=== PATIENT | female | born 1955 | race Caucasian/White ===

== ENCOUNTER 2016-05-16 11:27 | Emergency (ER) | payer OTHER ==
[2016-05-16 11:45] VITALS: RESP 16
[2016-05-16] MEDS ORDERED: NS 1,000 ML IV ONE (12:18)
[2016-05-16 12:34] LABS: % IMMATURE GRANULYOCYTES 0.5 % (0.0-1.1); ABSOLUTE IMMATURE GRANULOCYTES 0.02 10^3/uL (0.00-0.10); ADD DIFF? NO; ADD MORPH? NO; ADD SCAN? NO; ATYPICAL LYMPHOCYTE FLAG 10 (0-99); FRAGMENT RBC FLAG 0 (0-99); HEMATOCRIT 43.8 % (38.0-47.0); HEMOGLOBIN 15.5 g/dL (12.6-16.3); LEFT SHIFT FLG 0 (0-99); LIPEMIA HEMOLYSIS FLAG 90 (0-99); MEAN CELL HEMOGLOBIN 31.1 pg (27.9-34.1); MEAN CELL HEMOGLOBIN CONCENTR. 35.4 g/dL (32.4-36.7); MEAN PLATELET VOLUME 9.6 fL (8.7-11.7); PLATELET CLUMPS FLAG 0 (0-99); PLATELET COUNT 274 10^3/uL (150-400); RED BLOOD CELL COUNT 4.98 10^6/uL (4.18-5.33); RED CELL DISTRIBUTION WIDTH 12.3 % (11.5-15.2)
--- NOTE | 2016-05-16 12:38 | EDPHY ---
H & P Stated Complaint: ruq/epigastric /pain under r breast for 10 days Time Seen by Provider: 05/16/16 12:09 HPI/ROS: CHIEF COMPLAINT: Epigastric pain HISTORY OF PRESENT ILLNESS: Patient is a 61-year-old female who comes to the emergency department complaining of right upper quadrant pain for the last 10 days. She states that it had been intermittent until the last 3 days. She has felt nauseous but has not vomited. She has not had a fever. No diarrhea. No chest pain or shortness of breath. It is exacerbated by movement. She thought that maybe she had a bruised rib but does not remember any type of trauma or injury. No cough or infectious symptoms. REVIEW OF SYSTEMS: Constitutional: denies: chills, fever, recent illness, recent injury EENTM: denies: blurred vision, double vision, nose congestion Respiratory: denies: cough, shortness of breath Cardiac: denies: chest pain, irregular heart rate, lightheadedness, palpitations Gastrointestinal/Abdominal: denies: abdominal pain, diarrhea, nausea, vomiting, blood streaked stools Genitourinary: denies: dysuria, frequency, hematuria, pain Musculoskeletal: denies: joint pain, muscle pain Skin: denies: lesions, rash, jaundice, bruising Neurological: denies: headache, numbness, paresthesia, tingling, dizziness, weakness Hematologic/Lymphatic: denies: blood clots, easy bleeding, easy bruising Immunologic/allergic: denies: HIV/AIDS, transplant EXAM: GENERAL: Well-appearing, well-nourished and in no acute distress. HEAD: Atraumatic, normocephalic. EYES: Pupils equal round and reactive to light, extraocular movements intact, sclera anicteric, conjunctiva are normal. ENT: TMs normal, nares patent, oropharynx clear without exudates. Moist mucous membranes. NECK: Normal range of motion, supple without lymphadenopathy or JVD. LUNGS: Breath sounds clear to auscultation bilaterally and equal. No wheezes rales or rhonchi. HEART: Regular rate and rhythm without murmurs, rubs or gallops. ABDOMEN: Soft, nontender, normoactive bowel sounds. No guarding, no rebound. No masses appreciated. BACK: No CVA tenderness, no spinal tenderness, step-offs or deformities EXTREMITIES: Normal range of motion, no pitting or edema. No clubbing or cyanosis. NEUROLOGICAL: Cranial nerves II through XII grossly intact. Normal speech, normal gait. 5/5 strength, normal movement in all extremities, normal sensation PSYCH: Normal mood, normal affect. SKIN: Warm, dry, normal turgor, no visible rashes or lesions. Source: Patient Exam Limitations: No limitations - Personal History Current Tetanus/Diphtheria Vaccine: Yes - Medical/Surgical History Hx Asthma: No Hx Chronic Respiratory Disease: No Hx Diabetes: No Hx Cardiac Disease: No Hx Renal Disease: No Hx Cirrhosis: No Hx Alcoholism: No Hx HIV/AIDS: No Hx Splenectomy or Spleen Trauma: No Other PMH: Denies - Family History Significant Family History: No pertinent family hx - Social History Smoking Status: Never smoked Alcohol Use: Sober Drug Use: None Constitutional: Initial Vital Signs Temperature (C) 36.7 C 05/16/16 11:42 Heart Rate 80 05/16/16 11:42 Respiratory Rate 16 05/16/16 11:42 Blood Pressure 123/67 H 05/16/16 11:42 O2 Sat (%) 92 05/16/16 11:42 O2 Delivery Mode Room Air Allergies/Adverse Reactions: No Known Allergies Allergy (Verified 05/16/16 11:42) Home Medications: Medication Instructions Recorded Ambien 01/29/16 LORAZEPAM 05/16/16 Medical Decision Making - Diagnostics EKG Interpretation: An EKG obtained and was read and documented in trace view. Please see trace view for full reading and report. Sinus rhythm, no acute ischemic changes Imaging: Study: Ultrasound of the: Right upper quadrant Indication: Right upper quadrant pain Results: US scan of the right upper quadrant with special attention to the liver gallbladder and pancreas was obtained. The results of the study are negative for any gallstones, wall thickening or free fluid. The study was read by the radiologist, Dr. Galloway. I viewed the images myself on the PACS system. ED Course/Re-evaluation: Is 1:55 p.m. we discussed the patient's imaging and lab results which are reassuring. EKG is unremarkable. She thinks that she may be pulled her rib. She denies any trauma. I did offer to do a chest x-ray and rib x-ray which she declines. She is happy and would like to go home. will have her follow up in the next couple of days. We discussed indications for returning to the emergency department Differential Diagnosis: Partial list of the Differential diagnosis considered include but were not limited to; biliary disease, rib injury, and although unlikely based on the history and physical exam, I also considered arrhythmia, acute coronary disease , dissection, pneumonia, fracture, liver disease, kidney disease. I discussed these differential diagnoses and the plan with the patient as well as the usual and expected course. The patient understands that the diagnosis is provisional and that in medicine we are not always correct and that further workup is often warranted. Usual and customary warnings were given. All of the patient's questions were answered. The patient was instructed to return to the emergency department should the symptoms at all worsen or return, otherwise to followup with the physician as we discussed. - Data Points Laboratory Results: Laboratory Results 05/16/16 12:10 05/16/16 12:10 05/16/16 05/16/16 05/16/16 12:10 12:10 12:10 WBC 3.70 10^3/uL L 10^3/uL (3.80-9.50) RBC 4.98 10^6/uL 10^6/uL (4.18-5.33) Hgb 15.5 g/dL g/dL (12.6-16.3) Hct 43.8 % % (38.0-47.0) MCV 88.0 fL fL (81.5-99.8) MCH 31.1 pg pg (27.9-34.1) MCHC 35.4 g/dL g/dL (32.4-36.7) RDW 12.3 % % (11.5-15.2) Plt Count 274 10^3/uL 10^3/uL (150-400) MPV 9.6 fL fL (8.7-11.7) Neut % (Auto) 38.4 % L % (39.3-74.2) Lymph % (Auto) 50.8 % H % (15.0-45.0) Bert[place] % (Auto) 5.9 % % (4.5-13.0) Eos % (Auto) 4.1 % % (0.6-7.6) Baso % (Auto) 0.3 % % (0.3-1.7) Nucleat RBC Rel Count 0.0 % % (0.0-0.2) Absolute Neuts (auto) 1.42 10^3/uL L 10^3/uL (1.70-6.50) Absolute Lymphs (auto) 1.88 10^3/uL 10^3/uL (1.00-3.00) Absolute Monos (auto) 0.22 10^3/uL L 10^3/uL (0.30-0.80) Absolute Eos (auto) 0.15 10^3/uL 10^3/uL (0.03-0.40) Absolute Basos (auto) 0.01 10^3/uL L 10^3/uL (0.02-0.10) Absolute Nucleated RBC 0.00 10^3/uL 10^3/uL (0-0.01) Immature Gran % 0.5 % % (0.0-1.1) Immature Gran # 0.02 10^3/uL 10^3/uL (0.00-0.10) D-Dimer < 0.27 ug/mLFEU ug/mLFEU (0.00-0.50) Sodium 138 mEq/L mEq/L (134-144) Potassium 4.9 mEq/L mEq/L (3.5-5.2) Chloride 103 mEq/L mEq/L (97-110) Carbon Dioxide 25 mEq/l mEq/l (22-31) Anion Gap 10 mEq/L mEq/L (8-16) BUN 12 mg/dL mg/dL (7-23) Creatinine 0.8 mg/dL mg/dL (0.6-1.0) Estimated GFR > 60 Glucose 90 mg/dL mg/dL (70-100) Calcium 10.3 mg/dL mg/dL (8.5-10.4) Total Bilirubin 0.9 mg/dL mg/dL (0.1-1.4) Conjugated Bilirubin 0.3 mg/dL mg/dL (0.0-0.5) Unconjugated Bilirubin 0.6 mg/dL mg/dL (0.0-1.1) AST 25 IU/L IU/L (14-46) ALT 30 IU/L IU/L (9-52) Alkaline Phosphatase 46 IU/L IU/L (38-126) Troponin I < 0.012 ng/mL ng/mL (0-0.034) Total Protein 7.9 g/dL g/dL (6.3-8.2) Albumin 4.7 g/dL g/dL (3.5-5.0) Lipase 219.0 IU/L IU/L (23-300) Medications Given: Discontinued Medications Sodium Chloride (Ns) 1,000 mls @ 0 mls/hr IV ONCE ONE PRN Reason: Wide Open Stop: 05/16/16 12:19 Last Admin: 05/16/16 12:40 Dose: 1,000 mls Departure - Departure Disposition: Home, Routine, Self-Care Clinical Impression: Abdominal pain Qualifiers: Abdominal location: epigastric Qualified Code(s): R10.13 - Epigastric pain Condition: Fair Instructions: Epigastric Pain (ED) Referrals: Vannesa Munoz MD [Primary Care Provider] - As per Instructions
[2016-05-16 12:45] LABS: ALANINE AMINOTRANSFERASE 30 IU/L (9-52); ALBUMIN 4.7 g/dL (3.5-5.0); ALKALINE PHOSPHATASE 46 IU/L (38-126); ANION GAP 10 mEq/L (8-16); ASPARTATE AMINOTRANSFERASE 25 IU/L (14-46); BILIRUBIN,TOTAL 0.9 mg/dL (0.1-1.4); BILIRUBIN-CONJUGATED 0.3 mg/dL (0.0-0.5); BILIRUBIN-UNCONJUGATED 0.6 mg/dL (0.0-1.1); CALCIUM 10.3 mg/dL (8.5-10.4); CARBON DIOXIDE 25 mEq/l (22-31); CHLORIDE 103 mEq/L (97-110); CREATININE 0.8 mg/dL (0.6-1.0); GLOMERULAR FILTRATION RATE > 60; GLUCOSE 90 mg/dL (70-100); POTASSIUM 4.9 mEq/L (3.5-5.2); SODIUM 138 mEq/L (134-144); TOTAL PROTEIN 7.9 g/dL (6.3-8.2)
[2016-05-16 12:55] LABS: TROPONIN I < 0.012 ng/mL (0-0.034)
--- NOTE | 2016-05-16 13:23 | CPEKG ---
Heart Rate: 67 RR Interval: 896 P-R Interval: 144 QRSD Interval: 72 QT Interval: 396 QTC Interval: 418 P [place]: 61 QRS [place]: 52 T Wave [place]: 37 EKG Severity - NORMAL ECG - EKG Impression: SINUS RHYTHM Electronically Signed By: Eze Herndon 16-May-2016 13:55:02
[2016-05-16 14:29] VITALS: BP 136/81; PULSE 85; TEMP 97.9; O2SAT 96
== END 2016-05-16 14:29 | disposition home or self-care (01) ==
DX: R10.13 Epigastric pain (principal)

== ENCOUNTER → 2017-01-24 | Outpatient (CLI) | payer OTHER | LOC: FIMAGING 11:35 | PROVIDERS: ATTEND Physician Assistant | DX: Z12.31 Encounter for screening mammogram for malignant neoplasm of breast (principal); N64.4 Mastodynia | CPT/HCPCS: G0204 ==

== ENCOUNTER 2017-09-19 09:50 | Observation (INO) | payer OTHER ==
--- NOTE | 2017-09-19 10:08 | CPEKG ---
Heart Rate: 69 RR Interval: 870 P-R Interval: 152 QRSD Interval: 66 QT Interval: 376 QTC Interval: 403 P [place]: 44 QRS [place]: 37 T Wave [place]: 21 EKG Severity - BORDERLINE ECG - EKG Impression: SINUS RHYTHM EKG Impression: BORDERLINE T WAVE ABNORMALITIES Electronically Signed By: Prakahs Sneed 19-Sep-2017 14:10:10
--- NOTE | 2017-09-19 10:12 | EDPHY ---
H & P Time Seen by Provider: 09/19/17 09:54 HPI/ROS: CHIEF COMPLAINT: Altered mental status HISTORY OF PRESENT ILLNESS: 62-year-old female presents to the emergency department by ambulance for altered mental status. 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 No reported trauma. No alcohol or substance abuse today. She does take prescribed Ambien at bedtime to help her sleep. She does not think that she took a dose this morning but she is not sure. She is also prescribed Prozac which she takes in the morning. She denies a headache. Denies chest pain or difficulty breathing. Denies weakness in upper or lower extremities. REVIEW OF SYSTEMS: Constitutional: No fever, no chills. Eyes: No double or blurry vision. ENT: No sore throat. Respiratory: No cough, no shortness of breath. Cardiac: No chest pain. Gastrointestinal: No abdominal pain, vomiting or diarrhea. Genitourinary: No dysuria. Musculoskeletal: No neck or back pain. Skin: No rashes. Neurological: No headache. Past Medical/Surgical History: Depression, anxiety Social History: from [facility] Smoking Status: Never smoked Physical Exam: General Appearance: Lethargic, no distress. No visible signs of trauma to her head. She does not smell of alcohol. Eyes: Pupils equal and round. Extraocular motions are all intact. ENT: Mouth: Mucous membranes moist. Respiratory: No wheezing, rhonchi, or rales, lungs are clear to auscultation. Cardiovascular: Regular rate and rhythm. Gastrointestinal: Abdomen is soft and nontender, no masses, no rebound or guarding, bowel sounds normal. Neurological: Alert and oriented x 3, cranial nerves II through XII grossly intact Skin: Warm and dry, no rashes. Musculoskeletal: Nontender to palpate along the cervical, thoracic or lumbar spine. Neck is supple. Extremities: Full range of motion and no peripheral edema. Psychiatric: Patient is oriented X 3, there is no agitation. Constitutional: Initial Vital Signs Temperature (C) 36.7 C 09/19/17 10:21 Heart Rate 78 09/19/17 10:21 Respiratory Rate 16 09/19/17 10:21 Blood Pressure 123/79 H 09/19/17 10:21 O2 Sat (%) 94 09/19/17 10:21 O2 Delivery Mode Room Air Allergies/Adverse Reactions: No Known Allergies Allergy (Verified 05/16/16 11:42) Home Medications: Medication Instructions Recorded LORazepam [Ativan (*)] 1 mg PO TID PRN 01/29/16 Zolpidem Tartrate [Ambien 5MG (*)] 2.5 mg PO HS PRN 05/16/16 FLUoxetine [Prozac 10 MG (*)] 10 mg PO DAILY 09/19/17 Medical Decision Making - Diagnostics Imaging Results: Imaging Impressions Head CT 09/19/17 10:13 Impression: Mild chronic sinus related change left maxillary sinus. Otherwise normal CT head without contrast. Results called and discussed with Traci Wu PA-C, at 09/19/2017 10:53. Imaging: Discussed imaging studies w/ woodworker helper Radiologist ED Course/Re-evaluation: 62-year-old female presents to the emergency department with symptoms of weakness. She seems very tired. I asked if it was possible that she took her Ambien this morning instead of her Prozac, however she is not sure. The case was discussed with Dr. Jerry Sneed, secondary supervising physician who did not directly evaluate the patient but agrees with treatment and plan. Laboratory studies were all within normal limits. She had a non contrast CT scan of her brain which was normal. EKG and troponin were negative. The patient had cognitive improvement although still was very sleepy and confused with the events. She has no focal neurologic findings. MRI of her brain has been ordered. I recommended admission to the hospital for further observation and evaluation. Initially the family wanted to take her home but then agreed to keep her the hospital for observation. Patient will be admitted to Dr. Agustina Rodriguez, hospitalist to the medical- surgical floor. Differential Diagnosis: Altered mental status including but not limited to hypoglycemia, infectious process, electrolyte abnormality, head injury and intoxicants. - Data Points Laboratory Results: Laboratory Results 09/19/17 09:50 09/19/17 09:50 09/19/17 09/19/17 09/19/17 11:38 09:50 09:50 WBC 3.23 10^3/uL L 10^3/uL (3.80-9.50) RBC 4.47 10^6/uL 10^6/uL (4.18-5.33) Hgb 13.7 g/dL g/dL (12.6-16.3) Hct 40.1 % % (38.0-47.0) MCV 89.7 fL fL (81.5-99.8) MCH 30.6 pg pg (27.9-34.1) MCHC 34.2 g/dL g/dL (32.4-36.7) RDW 12.5 % % (11.5-15.2) Plt Count 220 10^3/uL 10^3/uL (150-400) MPV 9.6 fL fL (8.7-11.7) Neut % (Auto) 50.1 % % (39.3-74.2) Lymph % (Auto) 37.2 % % (15.0-45.0) [place] % (Auto) 6.5 % % (4.5-13.0) Eos % (Auto) 5.3 % % (0.6-7.6) Baso % (Auto) 0.6 % % (0.3-1.7) Nucleat RBC Rel Count 0.0 % % (0.0-0.2) Absolute Neuts (auto) 1.62 10^3/uL L 10^3/uL (1.70-6.50) Absolute Lymphs (auto) 1.20 10^3/uL 10^3/uL (1.00-3.00) Absolute Monos (auto) 0.21 10^3/uL L 10^3/uL (0.30-0.80) Absolute Eos (auto) 0.17 10^3/uL 10^3/uL (0.03-0.40) Absolute Basos (auto) 0.02 10^3/uL 10^3/uL (0.02-0.10) Absolute Nucleated RBC 0.00 10^3/uL 10^3/uL (0-0.01) Immature Gran % 0.3 % % (0.0-1.1) Immature Gran # 0.01 10^3/uL 10^3/uL (0.00-0.10) Sodium 139 mEq/L mEq/L (135-145) Potassium 4.3 mEq/L mEq/L (3.3-5.0) Chloride 105 mEq/L mEq/L (97-110) Carbon Dioxide 26 mEq/l mEq/l (22-31) Anion Gap 8 mEq/L mEq/L (8-16) BUN 20 mg/dL mg/dL (7-23) Creatinine 0.8 mg/dL mg/dL (0.6-1.0) Estimated GFR > 60 Glucose 94 mg/dL mg/dL (70-100) Calcium 9.5 mg/dL mg/dL (8.5-10.4) Troponin I < 0.012 ng/mL ng/mL (0.000-0.034) Urine Color PALE YELLOW Urine Appearance CLEAR Urine pH 6.0 (5.0-7.5) Ur Specific [place] 1.009 (1.002-1.030) Urine Protein NEGATIVE (NEGATIVE) Urine Ketones NEGATIVE (NEGATIVE) Urine Blood NEGATIVE (NEGATIVE) Urine Nitrate NEGATIVE (NEGATIVE) Urine Bilirubin NEGATIVE (NEGATIVE) Urine Urobilinogen NEGATIVE EU EU (0.2-1.0) Ur Leukocyte Esterase NEGATIVE (NEGATIVE) Urine RBC NONE SEEN /hpf /hpf (0-3) Urine WBC 0-1 /hpf /hpf (0-3) Ur Epithelial Cells NONE SEEN /lpf /lpf (NONE-1+) Urine Mucus TRACE /lpf /lpf (NONE-1+) Urine Glucose NEGATIVE (NEGATIVE) Ethyl Alcohol < 10 mg/dL mg/dL (0-10) Departure - Departure Disposition: Home, Routine, Self-Care Clinical Impression: Weakness, Confusion Condition: Good
[2017-09-19 10:19] LABS: PLATELET COUNT 220 10^3/uL (150-400)
[2017-09-19] MEDS ORDERED: ONDANSETRON 4 MG/2 ML VIAL IVP PRN (12:35)
[2017-09-19] MEDS ORDERED: ACETAMINOPHEN 325 MG TAB PO PRN (12:35)
[2017-09-19] MEDS ORDERED: ONDANSETRON DISINTEGRATING 4 MG TAB PO PRN (12:35)
--- NOTE | 2017-09-19 14:33 | GHP ---
[f rep st] HISTORY AND PHYSICAL DATE OF ADMISSION: 09/19/2017 CHIEF COMPLAINT: Sleepiness. HISTORY OF PRESENT ILLNESS: The patient is a 62-year-old female with no significant past medical his tory. She awoke this morning and felt to be in her normal state of health. 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 The patient denies any trauma. She sabina es any alcohol or substance abuse. She denies any nausea, vomiting, diarrhea. Denies any fevers, sw eats or night chills. Denies any dyspnea, shortness of breath, or chest pain. She does tell me that she normally takes two 10 mg tablets of Prozac at night before bed, and last evening she took one 5 mg tablet of Ambien prior to bed. She denies any headache. She has no other complaints, other than she is very tired. REVIEW OF SYSTEMS: A comprehensive review of systems is negative, other than noted in the 10 points in the HPI. PAST MEDICAL HISTORY: Depression, anxiety. SOCIAL HISTORY: The patient is . She is from [facility]. ALLERGIES: None. HOME MEDICATIONS: Ativan p.r.n., Ambien p.r.n., Prozac daily. PAST SURGICAL HISTORY: None. PHYSICAL EXAM: GENERAL: The patient is arousable, alert, oriented, in no acute distress. VITAL SIG NS: Afebrile at 36.7. Pulse is 65. Respiratory rate is 16. Blood pressure is 136/88. She is satur ating 92% on room air. HEENT: Normocephalic, atraumatic. Mucosal membranes are moist. Pupils equa l, round, reactive to light. RESPIRATORY: Lungs are clear to auscultation bilaterally. CARDIOVASCU LAR: S1, S2. No gallop or murmur noted. GASTROINTESTINAL: Abdomen, bowel sounds are positive, sof t and nontender. There is no guarding or rigidity noted. EXTREMITIES: Within normal limits. There is no clubbing or cyanosis noted. NEUROLOGICAL: The patient is grossly intact. SKIN: Warm and dr y, without rashes or lesions. MUSCULOSKELETAL: There is no cyanosis. There is no clubbing or edema . The patient moves all 4 extremities, complete range of motion. PSYCHIATRIC: The patient is alert and oriented, with no agitation, quite pleasant. Head CT notes mild chronic sinusitis. Laboratory evaluation essentially benign. ASSESSMENT AND PLAN: This is a 62-year-old female who presented to the emergency room after being co nfused and lethargic. She will be admitted to the hospital for further monitoring evaluation. A CT of her head at this point is within normal limits. An MRI has been ordered. I suspect that the blake ent may have mistaken her medications last night. She does tell me that she took two 10 mg tablets o f Prozac, and her home medication regimen listing says one 10 mg tablet of Prozac is her dose. When confirming with her, she does tell me that she takes two 10 mg tablets of Prozac at night, and she to ok 1 5 mg tablet of Ambien. Again, the patient has no focal deficits. An MRI of the brain has been ordered just for reassurance. All other workup is negative. We will continue to support her in the hospital setting under observation status and discharge her when appropriate. /[id number]/MODL
[2017-09-19 16:49] VITALS: BP 111/79
--- NOTE | 2017-09-19 18:29 | GDS ---
[f rep st] DISCHARGE SUMMARY DISCHARGE DIAGNOSES: 1. Acute encephalopathy. 2. Depression, anxiety. HISTORY OF PRESENT ILLNESS: A 62-year-old female with anxiety/depression, who awoke this morning in her normal state of health. 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 She appeared very sleepy. She did drink a couple of glasses of wine last night. She took her normal Prozac and a half a tab of Ambien 5 mg. Denies cough, diarrhea, dys uria. HOSPITAL COURSE BY PROBLEM: 1. Acute encephalopathy: Now resolved. Suspect this is secondary to Ambien in the setting of alcoh ol. She has had a negative workup here including UA, CT, and brain MRI. She had a negative U tox. She is in her normal state of health now, per her family and she would like to go home. I advised he r to be cautious mixing alcohol and sedative medications. 2. Depression, anxiety. Resume home medications. DISPOSITION: Patient is stable for discharge home. MEDICATIONS: No new medications. PHYSICAL EXAM: At discharge: VITAL SIGNS: Temperature 36.6, blood pressure 111/70, heart rate is i n the 60s, respirations 16, 94% on room air. GENERAL: She is smiling, laughing, sitting up in bed, no acute distress. HEENT: PERRLA. Moist mucous membranes. CV: Regular rate and rhythm. RESPIRAT ORY: Lungs are clear. ABDOMEN: Soft, nontender, nondistended. Positive bowel sounds. NEUROLOGICA L: Upper and lower extremity strength is 5/5. No focal deficits. PSYCH: Alert and oriented x3. V noam pleasant. Time spent on discharge: Thirty minutes reviewing records, imaging, and discussing at bedside with marco moralez and advising on medications. /[id number]/MODL
[2017-09-20] MEDS ORDERED: FLUoxetine 10 MG CAP PO SCH (09:00)
== END 2017-09-19 18:31 | disposition home or self-care (01) ==
LOC: EDUNIT# → EDBD → F1N 13:23
PROVIDERS: ADMIT Internal Medicine; ATTEND Internal Medicine
DX: G93.40 Encephalopathy, unspecified (principal); F32.9 Major depressive disorder, single episode, unspecified; F41.9 Anxiety disorder, unspecified
CPT/HCPCS: 70450; 70551; 93005; G0378; G0480